=== PATIENT | female | born 1965 | race Caucasian/White ===

== ENCOUNTER 2016-12-28 10:00 | Day surgery (SDC) | payer OTHER ==
[~2016-12-28] VITALS: Ht 165.1 cm; Wt 61.2 kg
[~2016-12-28 10:00] MED LIST: 0.9% Sodium Chloride 1,000 ML IV PRN; FLE10 PO; IBUP200T48 PO; KRIL500C PO; MULT-1007 PO; OXYC1TAB11 PO; SERT100T9 PO; Sodium Chloride LOK Flush 10 mL Syringe IV PRN; TRAVOS OP; UBID50TA PO; fentaNYL-PF 50 mCg/mL 2 mL Inj IVPUSH PRN
[2016-12-28 11:03] VITALS: BP 142/99; PULSE 16; RESP 16; O2SAT 98
--- NOTE | 2016-12-28 12:33 | PCM.ENDCOL ---
Colonoscopy Date of Service: Dec 28, 2016 Physician Gonzales Bennett MD Indication for Procedure Screening colon cancer Post Procedure Dx & Findings: Polyps Procedure Colonoscopy Prep adequate Withdrawal 11 minutes PROCEDURE IN DETAIL: After unremarkable rectal examination the sputum colonoscope was inserted patient's anal canal was intense the cecum. Landmarks are identified including the ileocecal valve and appendiceal orifice. Scope was retracted systematically. In the descending colon there was a 1 mm polyp which was removed completely using cold forceps. The mucosa of the cecum, ascending, transverse, descending, sigmoid, rectal mucosa lined with whitish, pink, smooth, glistening, normal-appearing mucosa, normal fine branching, underlying vascularity, normal haustra. The patient tolerated procedure and was transported to observation area. In the rectum retroflexion was done which showed hemorrhoids and anal canal was inspected carefully and the way out and mild hemorrhoids noted. Impression Polyp 1 status post complete removal Hemorrhoids Recommendation Repeat colonoscopy 5 years Presedation Assessment Risks and Benefits Informed consent was obtained from the patient after all risks and benefits including but not limited to drug reaction, infection, pain, bleeding, perforation, as well as alternatives were discussed. Patient monitoring Continuous pulse oximetry, cardiac monitoring, blood pressure monitoring, IV access, and oxygen at 2L per nasal cannula. Periprocedural Fentanyl: Fentanyl 100mcg Incrementally Midazolam: Midazolam 5mg Incrementally Complications There were no periprocedural complications identified. Post Procedure Plan Post Procedure Recommendations 1. Restrict activities today. 2. Resume normal activities in the morning. 3. Resume medications. 4. Patient informed of normal post procedure side effects as bloating, drowsiness, blood streaking in the stool. 5. average risk CRCS. If colon polyps come back as: -Hyperplastic- can repeat colonoscopy in 10 years -Tubular adenoma- repeat colonoscopy in 5 years -Tubulovillous/villous adenoma- repeat colonoscopy in 3 years -If any dysplasia- return to clinic as soon as possible 6. Please don't hesitate to call me with any questions. Gonzales Bennett MD Dec 28, 2016 12:33
[2016-12-28 12:37] VITALS: BP 109/70; PULSE 73; RESP 14; O2SAT 96
[2016-12-28 12:45] VITALS: BP 103/70; PULSE 66; RESP 14; O2SAT 97
[2016-12-28 12:55] VITALS: BP 110/75; PULSE 65; RESP 12; O2SAT 98
--- NOTE | 2016-12-30 13:36 | PATH ---
SURGICAL PATHOLOGY Attending Physician:Gonzales Bennett M.D. CASE STATUS: Signed Out PATIENT NAME: CARLOS LAMBERT PID: [id number] : 1965 DATE COLLECTED:12/28/2016 00:00 SPECIMEN: Colon, Biopsy CLINICAL HISTORY: POLYP 1). DESCENDING COLON POLYP FINAL DIAGNOSIS: 1.DESCENDING COLON POLYP: POLYPOID-SHAPED FRAGMENT OF COLON MUCOSA ASSOCIATED WITH MUCOSAL LYMPHOID AGGREGATES. NEGATIVE FOR DYSPLASIA AND MALIGNANCY. ICD10 CODE K63.5 GROSS DESCRIPTION: The specimen is received in one formalin filled container labeled with the patient's name, sublabeled "descending colon polyp" and consists of a 0.3 x 0.3 x 0.2 CM portion of tissue which is entirely submitted in one cassette. 12/29/2016 DAC MICRO DESCRIPTION: See diagnosis. ICD-9 CODES: CPT CODES: 1: 61145 Electronically Signed Out Joshua Duff MD [facility] Pathology [facility] [address] [facility], [place] [address] Technical component performed at [facility], [place], [address] [place] [address] Ave[address], [place], [address]
== END 2016-12-28 23:59 | disposition home or self-care (01) ==
LOC: END 10:00
PROVIDERS: ATTEND Internal Medicine
DX: Z12.11 Encounter for screening for malignant neoplasm of colon (principal); D12.4 Benign neoplasm of descending colon; K64.8 Other hemorrhoids; Z79.899 Other long term (current) drug therapy